=== PATIENT | male | born 1965 | race Caucasian/White ===

== ENCOUNTER 2016-12-08 07:54 | Day surgery (SDC) | payer OTHER ==
[2016-12-02 12:14] VITALS: BMI 29.1
[2016-12-08] MEDS ORDERED: PROPOFOL 20 ML ONE ×2 (07:58)
[2016-12-08 09:29] VITALS: TEMP 97.6
[2016-12-08 10:08] VITALS: BP 128/70; PULSE 64
== END 2016-12-08 09:55 | disposition home or self-care (01) ==
LOC: FASU-ENDO 07:54
PROVIDERS: ATTEND Internal Medicine Gastroenterology
PROC: 0DJD8ZZ Inspection of Lower Intestinal Tract, Via Natural or Artificial Opening Endoscopic (ICD-10-PCS; principal; 2016-12-08 08:57)
DX: K62.5 Hemorrhage of anus and rectum (principal); K64.8 Other hemorrhoids